=== PATIENT | female | born 1935 | race Caucasian/White ===

== ENCOUNTER → 2016-11-08 | Outpatient (CLI) | payer MEDICARE | END | disposition home or self-care (01) | LOC: PCVCIMAG 10:54 | PROVIDERS: ATTEND Internal Medicine Cardiovascular Disease | DX: I25.10 Atherosclerotic heart disease of native coronary artery without angina pectoris (principal); I10 Essential (primary) hypertension; E11.9 Type 2 diabetes mellitus without complications; E78.5 Hyperlipidemia, unspecified; I87.2 Venous insufficiency (chronic) (peripheral); I35.0 Nonrheumatic aortic (valve) stenosis; Z82.49 Family history of ischemic heart disease and other diseases of the circulatory system | CPT/HCPCS: 80061; 93005; 93306; G0463 ==

== ENCOUNTER → 2017-06-20 | Outpatient (CLI) | payer MEDICARE | END | disposition home or self-care (01) | LOC: PCVCCLINIC 15:02 | PROVIDERS: ATTEND Internal Medicine Cardiovascular Disease | DX: I25.10 Atherosclerotic heart disease of native coronary artery without angina pectoris (principal); I35.0 Nonrheumatic aortic (valve) stenosis; E78.5 Hyperlipidemia, unspecified; Z87.891 Personal history of nicotine dependence; Z79.82 Long term (current) use of aspirin; Z79.899 Other long term (current) drug therapy | CPT/HCPCS: 80061; 93005; G0463 ==

== ENCOUNTER → 2017-10-04 | Outpatient (CLI) | payer MEDICARE ==
[~2017-10-04] MED LIST: REGADENOSON 0.4 MG/5 ML DISP.SYRIN. IV
== END | disposition home or self-care (01) ==
LOC: PCVCIMAG 16:00
DX: Z01.818 Encounter for other preprocedural examination (principal); I25.10 Atherosclerotic heart disease of native coronary artery without angina pectoris; E11.9 Type 2 diabetes mellitus without complications; Z87.891 Personal history of nicotine dependence
CPT/HCPCS: 78452; 93017; A9500; J2785

== ENCOUNTER → 2018-05-01 | Outpatient (CLI) | payer MEDICARE | END | disposition home or self-care (01) | LOC: PCVCCLINIC 11:35 | PROVIDERS: ATTEND Internal Medicine Cardiovascular Disease | DX: I25.119 Atherosclerotic heart disease of native coronary artery with unspecified angina pectoris (principal); I35.0 Nonrheumatic aortic (valve) stenosis; I10 Essential (primary) hypertension; E78.00 Pure hypercholesterolemia, unspecified; Z82.49 Family history of ischemic heart disease and other diseases of the circulatory system; Z87.891 Personal history of nicotine dependence; Z79.82 Long term (current) use of aspirin; Z79.899 Other long term (current) drug therapy; Z79.84 Long term (current) use of oral hypoglycemic drugs; Z88.0 Allergy status to penicillin | CPT/HCPCS: 80061; 93005; G0463 ==

== ENCOUNTER → 2018-10-01 | Outpatient (CLI) | payer MEDICARE ==
--- NOTE | 2018-10-01 16:36 | PCVCIMAG ---
APPROVED REPORT Study performed: 10/01/2018 13:18:20 EXAM: Comprehensive 2D, Doppler, and color-flow Echocardiogram Patient Location: Echo lab Room #: 2Status: routine BSA: 1.71 HR: 64 bpmBP: 130/58 mmHg Rhythm: NSR Other Information Study Quality: Good Risk Factors: Cardiac Risk Factors: HTN, Hyperlipidemia Indications Aortic Valve Disease CAD Hypertension/HDD 2D Dimensions IVSd: 9.82 (7-11mm)LVOT Diam: 19.98 (18-24mm) LVDd: 50.89 mm PWd: 8.00 (7-11mm)Ascending Ao: 25.97 (22-36mm) LVDs: 24.90 (25-40mm) Left Atrium: 34.30 (27-40mm) Aortic Root: 22.00 mm LV Single Plane 4CH: 62.93 % LV Single Plane 2CH: 65.22 % Biplane EF: 63.8 % Volumes Left Atrial Volume (Systole) Single Plane 4CH: 62.21 mLSingle Plane 2CH: 54.84 mL Biplane LA Volume: 61.00 mLLA ESV Index: 36.00 mL/m2 Aortic Valve AoV Peak Roosevelt.: 2.90 m/s AO Peak Gr.: 33.72 mmHgLVOT Max P.05 mmHg AO Mean Gr.: 19.98 mmHg AO V2 Mean: 2.15 m/sLVOT Max V: 1.12 m/s AO V2 VTI: 76.68 cm EDUAR Vmax: 1.21 cm2 AI Vmax: 4.04 m/s AI [place]: 2.53 m/s2 AI PHT: 471.33 ms Mitral Valve E/A Ratio: 0.9 MV Decel. Time: 296.80 ms MV E Max Roosevelt.: 1.20 m/s MV A Roosevelt.: 1.40 m/s IVRT: 79.58 ms TDI E/Lateral E': 20.00E/Medial E': 20.00 Medial E' Roosevelt.: 0.06 m/s Lateral E' Roosevelt.: 0.06 m/s Pulmonary Valve PV Peak Roosevelt.: 0.99 m/sPV Peak Gr.: 3.92 mmHg Pulmonary Vein P Vein S: 0.49 m/sP Vein A: 0.29 m/s P Vein D: 0.40 m/sP Vein A Dur.: 93.4 msec P Vein S/D Ratio: 1.23 Tricuspid Valve TR Peak Roosevelt.: 3.06 m/s TR Peak Gr.: 37.47 mmHg TV Vmax: 0.62 m/sPA Pressure: 44.00 mmHg Left Ventricle The left ventricle is normal size. There is normal LV segmental wall motion. There is normal left ventricular wall thickness. Left ventricular systolic function is normal. The left ventricular ejection fraction is within the normal range. LVEF is 60-65%. Transmitral Doppler flow pattern suggests impaired LV relaxation. Right Ventricle The right ventricle is normal size. The right ventricular systolic function is normal. Atria Left atrium is mildly dilated. The right atrium size is normal. Aortic Valve Aortic valve is trileaflet. Aortic valve leaflets are mildly sclerotic with mildly reduced excursion. Moderate aortic regurgitation. Moderate aortic stenosis. Highest mean aortic valve gradient is 20_mmHg. Peak aortic valve gradient is 34_mmHg. Calculated EDUAR by the continuity equation is 1.2 cm2. Mitral Valve The mitral valve is normal in structure. There is trace/mild mitral valve regurgitation noted. No evidence of mitral valve stenosis. Tricuspid Valve The tricuspid valve is normal in structure. Mild tricuspid regurgitation with a PA pressure of 44 mmHg. Pulmonic Valve The pulmonary valve is normal in structure. Mild pulmonic regurgitation. Great Vessels The aortic root is normal in size. The ascending aorta is normal in size. Aortic arch is normal in caliber. IVC is normal in size and collapses >50% with inspiration. Pericardium There is no pericardial effusion. There is no pleural effusion. <Conclusion> The left ventricle is normal size. LVEF is 60-65%. Transmitral Doppler flow pattern suggests impaired LV relaxation. The right ventricle is normal size. Left atrium is mildly dilated. Aortic valve is trileaflet. Aortic valve leaflets are mildly sclerotic with mildly reduced excursion. Moderate aortic regurgitation. Moderate aortic stenosis. Highest mean aortic valve gradient is 20_mmHg. Peak aortic valve gradient is 34_mmHg. Calculated EDUAR by the continuity equation is 1.2 cm2. There is trace/mild mitral valve regurgitation noted. Mild tricuspid regurgitation with a PA pressure of 44 mmHg. The aortic root is normal in size. There is no pericardial effusion.
== END | disposition home or self-care (01) ==
LOC: PCVCIMAG 13:26
PROVIDERS: ATTEND Internal Medicine Cardiovascular Disease
DX: I08.3 Combined rheumatic disorders of mitral, aortic and tricuspid valves (principal); I25.10 Atherosclerotic heart disease of native coronary artery without angina pectoris; E78.00 Pure hypercholesterolemia, unspecified; I10 Essential (primary) hypertension; I87.2 Venous insufficiency (chronic) (peripheral); R60.9 Edema, unspecified; Z87.891 Personal history of nicotine dependence; Z79.899 Other long term (current) drug therapy
CPT/HCPCS: 36415; 80061; 93005; 93306; G0463

== ENCOUNTER → 2019-03-01 | Outpatient (CLI) | payer MEDICARE | END | disposition home or self-care (01) | LOC: PCVCCLINIC 14:00 | PROVIDERS: ATTEND Internal Medicine Cardiovascular Disease | DX: I25.10 Atherosclerotic heart disease of native coronary artery without angina pectoris (principal); E78.00 Pure hypercholesterolemia, unspecified; I87.2 Venous insufficiency (chronic) (peripheral); R60.9 Edema, unspecified; I35.0 Nonrheumatic aortic (valve) stenosis; E11.9 Type 2 diabetes mellitus without complications; Z82.49 Family history of ischemic heart disease and other diseases of the circulatory system; Z87.891 Personal history of nicotine dependence; Z88.0 Allergy status to penicillin; Z79.82 Long term (current) use of aspirin | CPT/HCPCS: 36415; 80061; 93005; G0463 ==